=== PATIENT | female | born 1980 | race African-American/Black ===

== ENCOUNTER → 2020-08-26 12:21 | Outpatient (CLI) | payer MEDICARE, MEDICAID, SELFPAY ==
--- NOTE | ~2020-08-26 | MM_ITS ---
EXAMINATION: MM screening jes[facility] BI w [facility] HISTORY: Screening TECHNIQUE: Craniocaudal and mediolateral oblique 3-D tomosynthesis images were obtained and synthetic 2-D images were generated. CAD analysis was submitted and interpreted. COMPARISON: No prior mammogram is available for comparison at this institution. BREAST PARENCHYMAL COMPOSITION: The breasts are heterogeneously dense, which may obscure small masses . FINDINGS: There is no evidence of suspicious mass, calcification, or architectural distortion to sugg est malignancy in either breast. There has been no suspicious interval change. IMPRESSION: 1. No mammographic evidence of malignancy. 2. Recommend routine screening mammography in one year. BI-RADS Category 1: Negative sinus Reviewed, dictated and finalized at location A. EDURE RN
== END ==
PROVIDERS: PCP Internal Medicine; Visit Provider Obstetrics & Gynecology
DX: Z12.31 Encounter for screening mammogram for malignant neoplasm of breast (principal)
CPT/HCPCS: 77063; 77067

== ENCOUNTER 2020-11-06 11:29 | Emergency (ER) | payer MEDICARE, MEDICAID, SELFPAY ==
[2020-11-06 11:54] VITALS: BP 126/91; PULSE 95; RESP 16; TEMP 36.8; O2SAT 99
--- NOTE | 2020-11-06 12:20 | ED.GENADULT ---
HPI - General Adult General Chief complaint: Skin/Abscess/Foreign Body Stated complaint: bump on top of head Time Seen by Provider: 11/06/20 12:20 Source: patient and RN notes reviewed Mode of arrival: ambulatory Limitations: no limitations History of Present Illness HPI narrative: 40-year-old -[place] female presents with complaints of scalp with redness, tenderness, and swelling for the past 4 months. Arjun report receiving a perm in June 2020 which caused a sore to top of head, later became a red and irritated with improvement now has pus over the past 24 hours once she removed her hair weave. Tender to touch. No drainage. No fever or chills. No abdominal pain, nausea, and vomiting. Tolerating po intake well. LMP 3 weeks ago. Remains active. The patient reports she have not been diagnosed with COVID-19. The patient reports she is not waiting for the results of a COVID-19 lab test. The patient reports she do not have weakness or fatigue. The patient reports she do not have a new or worsening cough or shortness of breath. Denies chest pain. The patient reports she do not have any rhinorrhea, congestion, sore throat, loss of taste or smell, and diarrhea. Denies recent traveling. Denies concerns for COVID-19 or exposures been home with limited outdoor exposure except for essential household needs and return home. At this time, patient is not suspected of having COVID-19. Some parts of this dictation were generated by voice recognition software and may contain typographical and/or grammatical inaccuracies. Related Data Allergies Allergy/AdvReac Type Severity Reaction Status Date / Time NSAIDS (Non-Steroidal Allergy Mild Swelling Verified 11/10/20 10:34 Anti-Inflamma NAPROXEN SODIUM Allergy Mild SWELLING Uncoded 11/10/20 10:34 Review of Systems Review of Systems: Narrative: CONSTITUTIONAL: Denies fever, chills, sweats. EYES: Denies visual changes, redness, discharge. ENT: Denies rhinorrhea, congestion, sore throat, otalgia. CARDIOVASCULAR: Denies chest pain, palpitations, edema. RESPIRATORY: Denies dyspnea, wheezing, cough. GASTROINTESTINAL: Denies abdominal pain, nausea, vomiting, diarrhea. GENITOURINARY: Denies dysuria, hematuria, abnormal discharge. SKIN: Denies rash or itching. Scalp with redness, tenderness, swelling, and with pus noted. Denies drainage. MUSCULOSKELETAL: Denies acute back pain, joint pain, or myalgia. NEUROLOGIC: Denies numbness or focal weakness. PSYCHIATRIC: Denies anxiety or depression. All systems reviewed & are unremarkable except as noted in HPI and below. PMFSH Past Medical History Medical History Anemia, unspecified delivery delivered History of depression Seasonal allergic rhinitis Surgical History Surgical History H/O section X3 Family History Family History Mother Patient's mother is in good health Father Patient's father is in good health Sibling Patient's sister is in good health Patient's brother is in good health Other Asthma Social History Social History Smoking status: Never smoker Second hand tobacco smoke exposure: No Alcohol intake: former Substance use: never Substance use type: does not use Additional occupation/education comments: Disable Gender identity (if verbalized by the patient): Female Comments At time of signature, I have reviewed and agree with nursing past medical, surgical, social, and family history. Please see nursing chart for further information. There is no relevant family history pertinent to the presenting complaint. Exam Narrative: Exam Narrative: GENERAL: This is a well-nourished, well-developed patient, in no apparent distress. Talking in full sentences without d
== END 2020-11-06 12:49 | disposition home or self-care (01) ==
PROVIDERS: Emergency Provider Nurse Practitioner Family
DX: L02.811 Cutaneous abscess of head [any part, except face] (principal); F32.9 Major depressive disorder, single episode, unspecified
CPT/HCPCS: 10060; 99213; G0463

== ENCOUNTER → 2020-11-24 07:00 | Outpatient (CLI) | payer MEDICARE, MEDICAID, SELFPAY ==
[2020-11-24 18:21] LABS: SARS-CoV-2 RNA PCR Negative
== END ==
PROVIDERS: PCP Internal Medicine; Visit Provider Internal Medicine
DX: R68.89 Other general symptoms and signs (principal); Z20.822 Contact with and (suspected) exposure to COVID-19
CPT/HCPCS: C9803; U0003; U0005

== ENCOUNTER → 2021-03-04 01:09 | Outpatient (CLI) | payer MEDICARE, MEDICAID, SELFPAY ==
[2021-03-04 23:32] LABS: SARS-CoV-2 RNA PCR Negative
== END ==
PROVIDERS: Obstetrics & Gynecology; PCP Internal Medicine; Visit Provider Obstetrics & Gynecology Gynecology
DX: Z01.812 Encounter for preprocedural laboratory examination (principal); Z20.822 Contact with and (suspected) exposure to COVID-19
CPT/HCPCS: C9803; U0003; U0005

== ENCOUNTER 2021-03-07 02:51 | Day surgery (SDC) | payer MEDICARE, MEDICAID, SELFPAY ==
[2021-02-28 12:37] VITALS: BMI 35.0
--- NOTE | 2021-03-04 18:16 | WPDANESEPP ---
Anes - Eval Pre Procedure Procedure: Operation Date: 03/07/21 12:00 Proposed Procedures p Marsupialization Left Bartholin's Gland Cyst - Jorge Oquendo MD Date/Time: 03/04/21 18:16 Pre Op Diagnosis: bartholin gland cyst Patient Data Age: 40 Gender: F Height: 1.37 m Weight: 66 kg Allergies Allergy/AdvReac Type Severity Reaction Status Date / Time NSAIDS (Non-Steroidal Allergy Mild Swelling Verified 12/10/20 10:05 Anti-Inflamma NAPROXEN SODIUM Allergy Mild SWELLING Uncoded 12/10/20 10:05 Home Medications Medication Instructions Recorded Confirmed Type alprazolam 1 mg tablet 1 mg PO QHS #30 tablet 12/10/20 02/28/21 Rx cholecalciferol (vitamin D3) 50 50 mcg PO DAILY #30 cap 12/10/20 02/28/21 Rx mcg (2,000 unit) capsule sertraline 50 mg tablet 50 mg PO DAILY #30 tablet 12/21/20 02/28/21 Rx Patient hx anesthesia problems: none Family hx anesthesia problems: none PMFSH Past Medical History Medical History (Updated 03/04/21 @ 18:17 by Edward Brandt DO) Anemia, unspecified Anxiety and depression delivery delivered Seasonal allergic rhinitis Surgical History Surgical History H/O section X3 Family History Family History Mother Patient's mother is in good health Father Patient's father is in good health Sibling Patient's sister is in good health Patient's brother is in good health Other Asthma Social History Social History Smoking status: Never smoker Second hand tobacco smoke exposure: No Alcohol intake: never Substance use: never Substance use type: does not use Additional occupation/education comments: Disable Gender identity (if verbalized by the patient): Female Spiritual care concerns: No Exam Day of Procedure 03/04/21 18:16
[2021-03-07 10:11] VITALS: BP 125/74; PULSE 80; RESP 16; TEMP 36.4; O2SAT 100
[2021-03-07] MEDS: ACETAMINOPHEN 500 MG TABLET 1000 MG PO (10:25)
[2021-03-07] MEDS: LACTATED RINGERS 1,000 ML 30 ML IV CONT (10:36)
--- NOTE | 2021-03-07 10:58 | P.PNAN_ITS ---
Anes - Eval Final PreProcedure Day of Procedure 03/07/21 10:58 Patient weight: obese Heart: regular rate and rhythm Lungs: clear to auscultation Airway: Mallampati scale class II Neurological: alert and oriented Last oral intake: >/= 8 hours ASA classification: III Emergent: no Anesthetic plan: proceed Anesthesia type and monitoring: general GIVS and standard monitoring Informed Consent: The patient's anesthetic plan and its attendant risks and b enefits were discussed with the patient/family/POA. Questions were solicited and answers provided to the satisfaction of the patient/family/POA.
--- NOTE | 2021-03-07 11:37 | PM.HPGS ---
History of Present Illness History of Present Illness Consent: Risks, benefits, and alternatives have been discussed and questions answered. Patient agrees to proceed with procedure. 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 Review of Systems Review of Systems: All systems reviewed & are unremarkable except as noted in HPI and below PMFSH Past Medical History Medical History (Updated 03/07/21 @ 11:39 by Jorge Oquendo MD) Anemia, unspecified Anxiety and depression Bartholin cyst delivery delivered Seasonal allergic rhinitis Surgical History Surgical History H/O section X3 Family History Family History Mother Patient's mother is in good health Father Patient's father is in good health Sibling Patient's sister is in good health Patient's brother is in good health Other Asthma Social History Social History Smoking status: Never smoker Second hand tobacco smoke exposure: No Alcohol intake: never Substance use: never Substance use type: does not use Living arrangements: with family Additional occupation/education comments: Disable Gender identity (if verbalized by the patient): Female Sexual Orientation (if Verbalized by the Patient): Straight or Heterosexual Spiritual care concerns: No Meds Home Medications and Allergies Home Medications Medication Instructions Recorded Confirmed Type alprazolam 1 mg tablet 1 mg PO QHS #30 tablet 12/10/20 03/07/21 Rx cholecalciferol (vitamin D3) 50 50 mcg PO DAILY #30 cap 12/10/20 03/07/21 Rx mcg (2,000 unit) capsule sertraline 50 mg tablet 50 mg PO DAILY #30 tablet 12/21/20 03/07/21 Rx Allergies Allergy/AdvReac Type Severity Reaction Status Date / Time naproxen Allergy Severe Swelling Verified 03/07/21 10:23 NSAIDS (Non-Steroidal Allergy Severe Swelling Verified 03/07/21 10:23 Anti-Inflamma Vital Signs Vital Signs - 24 hr 03/07/21 10:11 Temperature 36.4 C L Pulse Rate 80 Respiratory Rate 16 Blood Pressure 125/74 Pulse Oximetry 100 Exam Const: General: cooperative Orientation/consciousness: patient oriented x3 Resp: Auscultation: clear to auscultation bilaterally Cardio: Rate: regular rate Rhythm: regular rhythm GI: Auscultation: normal bowel sounds : Bimanual exam- vagina & uterus: normal bimanual exam Bimanual Exam- Adnexa, other: normal adnexae Other: left large bartholins cyst Assessment and Plan Assessment and plan (1) Bartholin cyst: Code(s): N75.0 - Cyst of Bartholin's gland Status: Acute Additional Plan scheduled for a marsupalization of Left bartholin cyst. risk and benfits reviewed with patient.
--- NOTE | 2021-03-07 11:45 | WPDHPUPDATE1 ---
History and Physical Update Update Date/Time: 03/07/21 11:45 History and Physical has been reviewed, including an updated exam of the patient. There are NO changes in the patient's condition. Risks, benefits, and alternatives have been discussed and questions answered. Patient agrees to proceed with procedure.
[2021-03-07] MEDS: LIDO 1%/EPINEPHRINE 1:100,000 10 ML VIAL 50 ML INFILTRATE (12:30)
--- NOTE | 2021-03-07 12:34 | W.PM.PROC2 ---
Procedure Note - Detailed Date of Procedure 03/07/21 Pre-op Diagnosis bartholin gland cyst Post-op Diagnosis same Procedure Performed marsupalization of bartholin cyst left Surgeon Jorge Oquendo MD Anesthesia MAC and local Findings large left bartholins Description of Procedure Patient was taken to the operating room. She was prepped and draped in a normal sterile fashion. She is placed in a dorsal lithotomy position. The vagina was examined and noted a large left Bartholin's glands a stab incision was made into the left labia copious amounts of purulent drainage the stab incision was extended to about 1cm. The mucosa of the gland was grasped with Allis clamps and 3-0 Vicryl suture was used to sew the gland open and a running stitch to the vaginal tissue. This created a marsupialization of the gland opening. Hemostasis was assured with 5cc of lidocaine was injected into the site. Patient tolerated the procedure well was taken to recovery room in stable condition. Estimated Blood Loss 5 Drains No Packing No Pathology yes Complications None Condition stable Disposition observation
[2021-03-07 12:37] VITALS: BP 101/65; PULSE 78; RESP 14; O2SAT 95
[2021-03-07 13:09] VITALS: BP 101/71; PULSE 68; RESP 14
[2021-03-07 13:28] VITALS: BP 98/63; PULSE 69; RESP 16
== END 2021-03-07 13:30 | disposition home or self-care (01) ==
PROVIDERS: PCP Internal Medicine; Visit Provider Obstetrics & Gynecology
PROC: (CPT 56440; principal; 2021-03-07 12:00)
DX: N75.0 Cyst of Bartholin's gland (principal); F41.8 Other specified anxiety disorders
CPT/HCPCS: 56440; 87070; 87075; 87205; A9270; J2250; J2405; J2704; J3010; J7120

== ENCOUNTER 2021-03-22 14:02 | Outpatient (CLI) | payer MEDICARE, MEDICAID, SELFPAY ==
[2021-03-22 14:31] LABS: Hematocrit 33.9 % (37.0-47.0); Hemoglobin 11.9 g/dL (12.0-15.0)
[2021-03-22 15:03] LABS: Vitamin D 25 Hydroxy 40.1 ng/mL
== END 2021-03-22 14:03 | disposition home or self-care (01) ==
PROVIDERS: PCP Internal Medicine; Visit Provider Internal Medicine
DX: D64.9 Anemia, unspecified (principal); E55.9 Vitamin D deficiency, unspecified
CPT/HCPCS: 36415; 82306; 85014; 85018

== ENCOUNTER → 2021-04-07 02:51 | Outpatient (CLI) | payer MEDICARE, MEDICAID, SELFPAY ==
[2021-04-07 20:44] LABS: SARS-CoV-2 RNA PCR Negative
== END ==
PROVIDERS: PCP Internal Medicine; Visit Provider Internal Medicine
DX: R68.89 Other general symptoms and signs (principal); Z20.822 Contact with and (suspected) exposure to COVID-19
CPT/HCPCS: C9803; U0003; U0005

== ENCOUNTER 2021-06-26 19:19 | Emergency (ER) | payer MEDICARE, MEDICAID, SELFPAY ==
[2021-06-26 19:29] VITALS: BP 118/84; PULSE 105; RESP 16; TEMP 37.6; O2SAT 100
--- NOTE | 2021-06-26 19:30 | ED.ABDPAIN ---
HPI - Abdominal Pain General Chief Complaint: Abdominal Pain Stated Complaint: abd pain Time Seen by Provider: 06/26/21 19:36 Source: patient Mode of arrival: ambulatory Limitations: no limitations History of Present Illness HPI narrative: Arjun Mcadams with a 41 yo female with a PMH of depression and anxiety and she takes alprazolam at bedtime, who comes with suprapubic pain to the [facility] for evaluation. She states that she started having cramping on Sunday after she had eaten some [place] food on Sunday and then the cramping got much worse and she thought that may be she was going to have another early menstrual period she states that sometimes she has 2 menstrual cycles a month. She did not start spotting or bleeding and she has had intermittent cramping on and off since today she has been trying to eat light and she ate 2 eggs a little over an hour before coming here and after she ate the eggs she threw up. She denies fever she denies worsening pain she has no shortness of breath she has no history of abdominal pain Related Data Allergies Allergy/AdvReac Type Severity Reaction Status Date / Time naproxen Allergy Severe Swelling Verified 06/26/21 19:32 NSAIDS (Non-Steroidal Allergy Severe Swelling Verified 06/26/21 19:32 Anti-Inflamma Review of Systems Review of Systems: CONSTITUTIONAL: Denies fever, chills, sweats. EYES: Denies visual changes, redness, discharge. ENT: Denies rhinorrhea, congestion, sore throat, otalgia. CARDIOVASCULAR: Denies chest pain, palpitations, edema. RESPIRATORY: Denies dyspnea, wheezing, cough GASTROINTESTINAL: Has abdominal pain, nausea, vomiting, diarrhea. GENITOURINARY: Denies dysuria, hematuria, abnormal discharge SKIN: Denies rash or itching. NEUROLOGIC: Denies numbness, or focal weakness. PSYCHIATRIC: Denies anxiety or depression. [facility] Past Medical History Medical History Anemia, unspecified Anxiety and depression Bartholin cyst delivery delivered Seasonal allergic rhinitis Surgical History Surgical History H/O section X3 Family History Family History Mother Patient's mother is in good health Father Patient's father is in good health Sibling Patient's sister is in good health Patient's brother is in good health Other Asthma Social History Social History Smoking status: Never smoker Second hand tobacco smoke exposure: No Alcohol intake: never Substance use: never Substance use type: does not use Additional occupation/education comments: Disable Gender identity (if verbalized by the patient): Female Sexual Orientation (if Verbalized by the Patient): Straight or Heterosexual Spiritual care concerns: No Comments At time of signature, I agree with nursing past medical, surgical, social and family history. There is no relevant family history pertinent to the presenting complaint. Exam Narrative: My GENERAL: This is a well-nourished, well-developed patient, in mild distress. HEAD: normocephalic, atraumatic. EYES: Sclera clear/white. Vision is grossly intact. EARS: External ears normal,. Hearing grossly intact. NOSE: External nose normal without nasal discharge, nares without redness, no rhinorrhea. THROAT: Mucous membranes moist, NECK: Neck supple, non-tender CARDIOVASCULAR: Tachycardic rate and rhythm without murmurs, gallops, or rubs. RESPIRATORY: Clear to auscultation. Breath sounds equal bilaterally. No wheezes, rales, or rhonchi. GASTROINTESTINAL: Abdomen soft, mild suprapubic tenderness SKIN: warm, intact with no suspicious lesions or rash, good texture and turgor. NEURO: awake, alert, and oriented to person, place and time. There were no obvious focal neurologic abnormalitie
== END 2021-06-26 19:57 | disposition home or self-care (01) ==
PROVIDERS: Emergency Provider Nurse Practitioner; PCP Internal Medicine
DX: R10.30 Lower abdominal pain, unspecified (principal); F41.9 Anxiety disorder, unspecified; F32.A Depression, unspecified
CPT/HCPCS: 81003; 99212; G0463

== ENCOUNTER 2021-06-26 21:09 | Emergency (ER) | payer MEDICARE, MEDICAID, SELFPAY ==
--- NOTE | ~2021-06-26 | CT_ITS ---
EXAMINATION: CT abdomen pelvis w con DATE: 06/27/2021 00:22 INDICATION: Left lower quadrant abdominal pain TECHNIQUE: Computed tomography (CT) of the abdomen and pelvis was performed with 100 cc Omnipaque 350 intravenous contrast. The dose-length product was 271.94 mGy-cm. Automated exposure control and iter ative reconstruction technique were employed. COMPARISON: CT dated 12/07/2003. FINDINGS: Lung bases unremarkable. Heart size normal. No significant pleural or pericardial effusion. Fatty infiltration of the liver. Gallbladder is present. The spleen, pancreas, adrenal glands and kid neys are unremarkable. There is a peridiverticular abscess of the sigmoid colon measuring 11 mm. No f ree air. There is diverticulitis of the sigmoid colon with mild surrounding phlegmonous change. Nonob structive bowel gas pattern. There is an involuting 1.9 cm corpus luteal cyst of the left ovary. Trac e free fluid in the pelvis. IMPRESSION: 1. Acute sigmoid diverticulitis with small 11 mm peridiverticular abscess. Reviewed, dictated and finalized at location B. [employer] LEVEL FIVE
[2021-06-26 21:13] VITALS: BP 143/93; PULSE 91; RESP 16; TEMP 36.4; O2SAT 100
[2021-06-26 23:26] LABS: Basophils Percent Auto 0.2 % (0.2-1.2); Eosinophils Percent Auto 0.2 % (0-4.4); Hematocrit 35.4 % (37.0-47.0); Hemoglobin 12.7 g/dL (12.0-15.0); Immature Granulocyte Absolute 0.02 K/mm3 (0.00-0.031); Immature Granulocyte Percent A 0.2 % (0-0.5); Lymphocytes Absolute Auto 2.56 K/mm3 (0.9-3.2); Lymphocytes Percent Auto 26.1 % (18.3-44.2); Mean Corpuscular HGB Conc 35.9 g/dl (32-36); Mean Corpuscular Hemoglobin 31.4 pg (26-34); Mean Corpuscular Volume 87.4 fl (80-100); Mean Platelet Volume 10.8 fl (7.4-10.4); Monocytes Absolute Auto 0.8 K/mm3 (0.1-0.6); Monocytes Percent Auto 7.6 % (2.6-8.5); Neutrophils Absolute Auto 6.5 K/mm3 (1.3-6.7); Neutrophils Percent Auto 65.7 % (45.5-73.1); Platelet Count Result 288 k/mm3 (150-375); Red Blood Count 4.05 M/mm3 (4.2-5.4); White Blood Count 9.8 K/mm3 (4.5-10.0)
--- NOTE | 2021-06-26 23:34 | ED.GENADULT ---
HPI - General Adult General Chief complaint: Urogenital-Female Stated complaint: abd pain Time Seen by Provider: 06/26/21 23:10 History of Present Illness HPI narrative: Patient is a 41-year-old female presents the emergency department with chief complaint of left lower quadrant pain. The patient was seen in urgent care earlier today and had a urinalysis the patient reports that she is continued to have pain of the left lower quadrant reports not improved by anything or is worsened by. Patient denies fever denies chills denies vomiting or diarrhea. Patient reports it feels similar to whenever she is about started. She has not started her period yet. Related Data Allergies Allergy/AdvReac Type Severity Reaction Status Date / Time naproxen Allergy Severe Swelling Verified 06/26/21 19:32 NSAIDS (Non-Steroidal Allergy Severe Swelling Verified 06/26/21 19:32 Anti-Inflamma Review of Systems Review of Systems: A 10 system review of systems was completed on the patient and is negative except for what is stated in the HPI. Nursing and ancillary documentation was reviewed. PMFSH Past Medical History Medical History Anemia, unspecified Anxiety and depression Bartholin cyst delivery delivered Seasonal allergic rhinitis Surgical History Surgical History H/O section X3 Family History Family History Mother Patient's mother is in good health Father Patient's father is in good health Sibling Patient's sister is in good health Patient's brother is in good health Other Asthma Social History Social History Smoking status: Never smoker Second hand tobacco smoke exposure: No Alcohol intake: never Substance use: never Substance use type: does not use Additional occupation/education comments: Disable Gender identity (if verbalized by the patient): Female Sexual Orientation (if Verbalized by the Patient): Straight or Heterosexual Spiritual care concerns: No Exam Narrative: GENERAL: Well-appearing, well-nourished, and in no acute distress. HEAD: Normocephalic, atraumatic. EYES: PERRLA and EOMI. ENT: Nares clear, no rhinorrhea or epistaxis. Mucous membranes moist. NECK: Supple. CHEST: Clear to auscultation. No respiratory distress. HEART: Regular rate and rhythm. No murmur heard. Normal peripheral pulses. ABDOMEN: Soft, tenderness to palpation in the left lower quadrant, nondistended, normal active bowel sounds. EXTREMITIES: Normal range of motion. No edema. SKIN: Warm, dry, no rash. NEURO: No focal deficits. Alert and oriented x3. PSYCH: Normal mood and affect. Course Vital Signs Vital signs: Vital Signs Temperature 36.4 C L 06/26/21 21:13 Pulse Rate 91 06/26/21 21:13 Respiratory Rate 16 06/26/21 21:13 Blood Pressure 143/93 H 06/26/21 21:13 Pulse Oximetry 100 06/26/21 21:13 Temperature 36.4 C L 06/26/21 21:13 Pulse Rate 76 06/27/21 01:05 Respiratory Rate 16 06/26/21 21:13 Blood Pressure 117/79 06/27/21 01:05 Pulse Oximetry 99 06/27/21 01:05 Medical Decision Making Vital Signs Vital Signs: Vital Signs Temperature 36.4 C L 06/26/21 21:13 Pulse Rate 91 06/26/21 21:13 Respiratory Rate 16 06/26/21 21:13 Blood Pressure 143/93 H 06/26/21 21:13 Pulse Oximetry 100 06/26/21 21:13 Temperature 36.4 C L 06/26/21 21:13 Pulse Rate 76 06/27/21 01:05 Respiratory Rate 16 06/26/21 21:13 Blood Pressure 117/79 06/27/21 01:05 Pulse Oximetry 99 06/27/21 01:05 Lab Data Result diagrams: 06/26/21 23:19 06/26/21 23:19 Labs: Lab Results 06/26/21 06/26/21 06/26/21 Range/Units 23:19 23:19 23:19 WBC 9.8 (4.5-10.0) K/mm3 RBC 4
[2021-06-26 23:50] LABS: Add Urine Microscopic? YES; Appearance Urine Clear (Clear); Bilirubin Urine Negative (Negative); Blood Urine 1+ (Negative); Color Urine Yellow (Yellow); Glucose Urine UA Negative (Negative); Ketones Urine Trace mg/dL (Negative); Leukocyte Esterase Ur Negative LEU/UL (Negative); Mucus Urine Rare /lpf; Nitrate Urine Negative (Negative); Protein Urine Negative (Negative); RBC Urine 0-2 /hpf (0-2); Specific Grav Ur 1.012 (1.001-1.035); Squamous Epithelial Cell Urine Moderate /hpf (Few); Urobilinogen Urine Negative mg/dL (<2.0); WBC Urine 0-3 /hpf
[2021-06-26 23:56] LABS: Alanine Aminotransferase 14 U/L (4-35); Albumin Level 4.4 g/dL (3.5-5.1); Alkaline Phosphatase 104 U/L (38-126); Anion Gap 8 mmol/L (8-16); Aspartate Amino Transferase 21 U/L (14-36); Bilirubin,Total 0.6 mg/dL (0.2-1.3); Blood Urea Nitrogen 9 mg/dL (7-17); Carbon Dioxide 28 mmol/L (22-30); Chloride 105 mmol/L (98-107); Estimated CRCL calculation 64 ml/min; Estimated Glomerular Filt Rate > 60; Glucose 115 mg/dL (65-110); Lipase 57 U/L (23-300); Potassium 3.7 mmol/L (3.4-5.0); Sodium 141 mmol/L (137-145)
[2021-06-27 00:27] VITALS: BP 116/74; PULSE 86; O2SAT 99
[2021-06-27 01:05] VITALS: BP 117/79; PULSE 76; O2SAT 99
[2021-06-27 01:15] VITALS: BP 124/79; O2SAT 99
[2021-06-27 01:31] VITALS: BP 116/80; O2SAT 99
[2021-06-27 01:46] VITALS: BP 112/71; O2SAT 99
[2021-06-27] MEDS: AMOXICILLIN/CLAVULANATE K 875-125 MG TAB 1 TABLET PO (01:57)
== END 2021-06-27 02:05 | disposition home or self-care (01) ==
PROVIDERS: Emergency Provider Emergency Medicine; PCP Internal Medicine
DX: K57.20 Diverticulitis of large intestine with perforation and abscess without bleeding (principal); N83.202 Unspecified ovarian cyst, left side; D64.9 Anemia, unspecified
CPT/HCPCS: 36415; 74177; 80053; 81001; 81003; 81025; 83690; 85025; 99284; A9270; Q9967

== ENCOUNTER → 2021-08-10 02:18 | Outpatient (CLI) | payer MEDICARE, MEDICAID, SELFPAY ==
[2021-08-10 21:19] LABS: SARS-CoV-2 RNA PCR Negative
== END ==
PROVIDERS: PCP Internal Medicine; Visit Provider Internal Medicine
DX: R68.89 Other general symptoms and signs (principal); Z20.822 Contact with and (suspected) exposure to COVID-19
CPT/HCPCS: C9803; U0003; U0005

== ENCOUNTER → 2021-12-06 13:20 | Outpatient (CLI) | payer MEDICARE, MEDICAID, SELFPAY ==
--- NOTE | ~2021-12-06 | MM_ITS ---
EXAMINATION: MM screening jesus BI w [facility] HISTORY: Screening TECHNIQUE: Craniocaudal and mediolateral oblique 3-D tomosynthesis images were obtained and synthetic 2-D images were generated. CAD analysis was submitted and interpreted. COMPARISON: 08/26/2020 BREAST PARENCHYMAL COMPOSITION: The breasts are extremely dense, which lowers the sensitivity of mamm ography FINDINGS: There is no evidence of suspicious mass, calcification, or architectural distortion to sugg est malignancy in either breast. There has been no suspicious interval change. IMPRESSION: 1. No mammographic evidence of malignancy. 2. Recommend routine screening mammography in one year. BI-RADS Category 1: Negative Reviewed, dictated and finalized at location A.
== END ==
PROVIDERS: PCP Internal Medicine; Visit Provider Obstetrics & Gynecology Gynecology
DX: Z12.31 Encounter for screening mammogram for malignant neoplasm of breast (principal)
CPT/HCPCS: 77063; 77067

== ENCOUNTER 2022-03-01 08:08 | Emergency (ER) | payer MEDICARE, MEDICAID, SELFPAY ==
[2022-03-01 08:16] VITALS: BP 120/77; PULSE 115; RESP 16; TEMP 37.1; O2SAT 99
--- NOTE | 2022-03-01 08:27 | ED.URI ---
HPI - URI/Sore Throat General Stated Complaint: sore throat Time Seen by Provider: 03/01/22 08:27 Source: patient Mode of arrival: ambulatory Limitations: no limitations History of Present Illness HPI Narrative: 41 yo F presents with c/o mild sore throat starting yesterday. Denies congestion, drainage, cough. NO fever/chills or fatigue. Also reports itching to labia of vaginal. Reports that she has very sensitive skin and does not shave or use soaps to vagina. No concern for STI. No urinary symptoms. All systems reviewed and negative except as noted above. Related Data Allergies Allergy/AdvReac Type Severity Reaction Status Date / Time naproxen Allergy Severe Swelling Verified 03/01/22 08:10 NSAIDS (Non-Steroidal Allergy Severe Swelling Verified 03/01/22 08:10 Anti-Inflamma Review of Systems Review of Systems: CONSTITUTIONAL: Denies fever, chills, or sweats. EYES: Denies visual changes, redness, or discharge. ENT: Denies rhinorrhea, congestion. Reports sore throat. CARDIOVASCULAR: Denies chest pain, palpitations, or edema. RESPIRATORY: Denies cough or dyspnea. GASTROINTESTINAL: Denies abdominal pain, nausea, vomiting, or diarrhea. GENITOURINARY: Denies dysuria or hematuria. Reports itching to labia. SKIN: Denies rash or itching. MUSCULOSKELETAL: Denies back pain, joint pain, or myalgia. NEUROLOGIC: Denies headache, numbness, or weakness. PSYCHIATRIC: Denies anxiety or depression. All other systems reviewed are negative, except as documented in HPI. [facility] Past Medical History Medical History Anemia, unspecified Anxiety and depression Bartholin cyst delivery delivered Seasonal allergic rhinitis Surgical History Surgical History H/O section X3 Family History Family History Mother Patient's mother is in good health Father Patient's father is in good health Sibling Patient's sister is in good health Patient's brother is in good health Other Asthma Social History Social History (Reviewed 10/04/21 @ 13:28 by NORM Vazquez Smoking status: Never smoker Second hand tobacco smoke exposure: No Alcohol intake: never Substance use: never Substance use type: does not use Additional occupation/education comments: Disable Gender identity (if verbalized by the patient): Female Sexual Orientation (if Verbalized by the Patient): Straight or Heterosexual Spiritual care concerns: No Comments At time of signature, agree with nursing past medical, surgical, social and family history. There is no relevant family history pertinent to the presenting complaint. Exam Narrative: GENERAL: This is a well-nourished, well-developed patient, in no apparent distress. HEAD: normocephalic, atraumatic. EYES: PERRL. Sclera clear/white. Vision is grossly intact. EARS: External ears normal, auditory canals clear and without drainage, TMs normal without perforation. Hearing grossly intact. NOSE: External nose normal with no obvious nasal discharge, nares without redness, no rhinorrhea. THROAT: Mucous membranes moist, posterior pharynx clear. No exudates or swelling. NECK: Neck supple, non-tender without lymphadenopathy, masses or thyromegaly. CARDIOVASCULAR: Regular rate and rhythm without murmurs, gallops, or rubs. RESPIRATORY: Clear to auscultation. Breath sounds equal bilaterally. No wheezes, rales, or rhonchi. Urogenital: Normal external vagina. no rash, follicutlitis, erythema or swelling. devon Naidu RN SKIN: warm, Dry, intact with no suspicious lesions or rash, good texture and turgor. NEURO: awake, alert, and oriented to person, place and time. There were no obvious focal neurologic abnormalities. EXTREMITIES: No joint tenderness, effusion, or edema noted. Course Course Level of Care: Mateo Medrano
== END 2022-03-01 08:38 | disposition home or self-care (01) ==
PROVIDERS: Emergency Provider Nurse Practitioner Family; PCP Internal Medicine
DX: J02.9 Acute pharyngitis, unspecified (principal); N89.8 Other specified noninflammatory disorders of vagina; D64.9 Anemia, unspecified
CPT/HCPCS: 87081; 87880; 99213; G0463

== ENCOUNTER 2022-04-19 08:54 | Outpatient (CLI) | payer MEDICARE, MEDICAID, SELFPAY ==
[2022-04-19 09:20] LABS: Alanine Aminotransferase 14 U/L (6-35); Albumin Level 4.3 g/dL (3.5-5.1); Alkaline Phosphatase 67 U/L (38-126); Anion Gap 8 mmol/L (8-16); Aspartate Amino Transferase 20 U/L (14-36); Bilirubin,Total 0.8 mg/dL (0.2-1.3); Blood Urea Nitrogen 10 mg/dL (7-17); Calcium 9.2 mg/dL (8.4-10.2); Carbon Dioxide 24 mmol/L (22-30); Chloride 108 mmol/L (98-107); Cholesterol 147 mg/dL (0-200); Estimated Glomerular Filt Rate > 60; Glucose 95 mg/dL (65-110); HDL Direct 56 mg/dL; Potassium 3.9 mmol/L (3.4-5.0); Sodium 140 mmol/L (137-145); Triglycerides 134 mg/dL (<150)
[2022-04-19 09:30] LABS: LDL Cholesterol Direct 62 mg/dL
[2022-04-19 09:49] LABS: Thyroid Stimulating Hormone 0.639 uIU/mL (0.465-4.680)
[2022-04-19 10:05] LABS: Vitamin D 25 Hydroxy 30.6 ng/mL
== END 2022-04-19 08:55 | disposition home or self-care (01) ==
PROVIDERS: PCP Internal Medicine; Visit Provider Nurse Practitioner
DX: E55.9 Vitamin D deficiency, unspecified (principal); F32.A Depression, unspecified; R73.01 Impaired fasting glucose; Z13.220 Encounter for screening for lipoid disorders; Z13.6 Encounter for screening for cardiovascular disorders
CPT/HCPCS: 36415; 80053; 80061; 82306; 84443

== ENCOUNTER 2022-06-23 09:40 | Emergency (ER) | payer MEDICARE, MEDICAID, SELFPAY ==
[2022-06-23 09:48] VITALS: BP 122/75; PULSE 91; RESP 16; TEMP 36.9; O2SAT 100
--- NOTE | 2022-06-23 10:31 | ED.URI ---
HPI - URI/Sore Throat General Chief Complaint: Upper Respiratory Infection Stated Complaint: sore throat Time Seen by Provider: 06/23/22 10:31 Source: patient, RN notes reviewed and old records reviewed Mode of arrival: ambulatory Limitations: no limitations History of Present Illness HPI Narrative: 42-year-old female presents to the [facility] with complaints of sore throat, runny nose for 3 days Patient also reports that she woke up with crusted eyes morning, redness and inflammation. Wears glasses but not contact lenses. Has been using Chloraseptic for the sore throat. Denies any other treatment. Related Data Allergies Allergy/AdvReac Type Severity Reaction Status Date / Time naproxen Allergy Severe Swelling Verified 06/23/22 10:01 NSAIDS (Non-Steroidal Allergy Severe Swelling Verified 06/23/22 10:01 Anti-Inflamma Review of Systems Review of Systems: All systems reviewed & are unremarkable except as noted in HPI and below Constitutional: Constitutional: Reports no additional constitutional complaints, Denies chills and Denies fever(s) Eyes: Eyes: Reports as per HPI ENT: Reports as per HPI and Reports sore throat Cardiovascular: Cardiovascular: Reports no additional cardiovascular complaints Respiratory: Respiratory: Reports no additional respiratory complaints Gastrointestinal: Gastrointestinal: Reports no additional gastrointestinal complaints Musculoskeletal: Musculoskeletal: Reports no additional musculoskeletal complaints Integumentary/Breasts: Skin/Breast: Reports system reviewed and no additional complaints, except as docu Neurologic: Reports system reviewed and no additional complaints, except as documented Psychiatric: Psychiatric: Reports no additional psychiatric complaints Allergic/Immunologic: Allergic/Immunologic: Reports no additional allergic/immunologic complaints [facility] Past Medical History Medical History Anemia, unspecified Anxiety and depression Bartholin cyst delivery delivered Seasonal allergic rhinitis Surgical History Surgical History H/O section X3 Family History Family History Mother Patient's mother is in good health Father Patient's father is in good health Sibling Patient's sister is in good health Patient's brother is in good health Other Asthma Social History Social History (Reviewed 06/23/22 @ 10:37 by ARPITA Ayala Smoking status: Never smoker Second hand tobacco smoke exposure: No Alcohol intake: never Substance use: never Substance use type: does not use Additional occupation/education comments: Disable Gender identity (if verbalized by the patient): Female Sexual Orientation (if Verbalized by the Patient): Straight or Heterosexual Spiritual care concerns: No Comments At the time of my signature, I reviewed and agree with the nursing past medical, surgical, social, and family history. There is no relevant family history pertinent to the patient complaint. Exam Const: General: healthy appearing, comfortable, no acute distress, well developed, alert and well nourished Nutritional Appearance: well nourished Orientation/consciousness: patient oriented x3 Limitations: no limitations HENMT: Head: normal to inspection Ears: external ears normal, TM's normal bilaterally and EAC's normal Face/Nose/Sinus: Normal external nose present and Normal nares present Face and sinus: normal facial exam Mouth: Yes Normal oral and palatal mucosa present, Yes lip normal and Yes tongue normal Throat: posterior oropharynx normal, tonsils normal, uvula midline, postnasal drainage and no uvular edema Eyes: General: appearance normal, both eyes and all related structures Conjunctivae: conjunctivae normal Pupils: Equal, round and reactive pupils present Neck:
== END 2022-06-23 10:44 | disposition home or self-care (01) ==
PROVIDERS: Emergency Provider Nurse Practitioner; PCP Internal Medicine
DX: R09.82 Postnasal drip (principal); H57.13 Ocular pain, bilateral; J06.9 Acute upper respiratory infection, unspecified
CPT/HCPCS: 99213; G0463

== ENCOUNTER 2022-07-10 11:20 | Emergency (ER) | payer MEDICARE, MEDICAID, SELFPAY ==
[2022-07-10 11:27] VITALS: BP 103/68; PULSE 101; RESP 18; TEMP 36.6; O2SAT 99
--- NOTE | 2022-07-10 11:27 | ED.GENADULT ---
HPI - General Adult General Chief complaint: Upper Respiratory Infection Stated complaint: Fever Time Seen by Provider: 07/10/22 11:27 Source: patient, RN notes reviewed and old records reviewed Mode of arrival: ambulatory Limitations: no limitations History of Present Illness HPI narrative: 42-year-old female presents to the [facility] with a fever as high as 103 since Sunday, 2 days. Has not taken anything for symptoms. Not concerned for COVID, states that she took a test at home which was negative. Reports 2 of her children are home with strep and influenza A. Onset (ago): day(s) (2) Related Data Home Medications Medication Instructions Recorded Confirmed No Home Medications 07/10/22 07/10/22 Allergies Allergy/AdvReac Type Severity Reaction Status Date / Time naproxen Allergy Severe Swelling Verified 07/10/22 11:36 NSAIDS (Non-Steroidal Allergy Severe Swelling Verified 07/10/22 11:36 Anti-Inflamma Review of Systems Review of Systems: All systems reviewed & are unremarkable except as noted in HPI and below Constitutional: Constitutional: Reports as per HPI, Reports body ache(s), Reports chills, Reports fatigue and Reports fever(s) Eyes: Eyes: Reports no additional eye complaints ENT: Reports as per HPI Cardiovascular: Cardiovascular: Reports no additional cardiovascular complaints, Denies chest pain and Denies dyspnea Respiratory: Respiratory: Reports no additional respiratory complaints, Denies chest congestion, Denies cough and Denies dyspnea Gastrointestinal: Gastrointestinal: Reports no additional gastrointestinal complaints, Denies abdominal pain, Denies nausea and Denies vomiting Musculoskeletal: Musculoskeletal: Reports no additional musculoskeletal complaints Integumentary/Breasts: Skin/Breast: Reports system reviewed and no additional complaints, except as docu Neurologic: Reports system reviewed and no additional complaints, except as documented Psychiatric: Psychiatric: Reports no additional psychiatric complaints Allergic/Immunologic: Allergic/Immunologic: Reports no additional allergic/immunologic complaints [facility] Past Medical History Medical History Anemia, unspecified Anxiety and depression Bartholin cyst delivery delivered Seasonal allergic rhinitis Surgical History Surgical History H/O section X3 Family History Family History Mother Patient's mother is in good health Father Patient's father is in good health Sibling Patient's sister is in good health Patient's brother is in good health Other Asthma Social History Social History Smoking status: Never smoker Second hand tobacco smoke exposure: No Alcohol intake: never Substance use: never Substance use type: does not use Additional occupation/education comments: Disable Gender identity (if verbalized by the patient): Female Sexual Orientation (if Verbalized by the Patient): Straight or Heterosexual Spiritual care concerns: No Comments At the time of my signature, I reviewed and agree with the nursing past medical, surgical, social, and family history. There is no relevant family history pertinent to the patient complaint. Exam Const: General: cooperative, healthy appearing, comfortable, no acute distress, well developed, alert and well nourished Nutritional Appearance: well nourished Orientation/consciousness: patient oriented x3 Limitations: no limitations HENMT: Head: normal to inspection Ears: hearing grossly normal bilaterally and external ears normal Face/Nose/Sinus: Normal external nose present, Normal nares present, Normal nasal mucous membranes and turbinates present and normal facial exam Face and sinus: normal facial exam Mouth: Yes Normal
== END 2022-07-10 11:49 | disposition home or self-care (01) ==
PROVIDERS: Emergency Provider Nurse Practitioner; PCP Internal Medicine
DX: R50.9 Fever, unspecified (principal); R53.83 Other fatigue
CPT/HCPCS: 87804; 99213; G0463

== ENCOUNTER 2022-11-11 16:42 | Emergency (ER) | payer MEDICARE, MEDICAID, SELFPAY ==
[2022-11-11 16:51] VITALS: BP 118/72; PULSE 86; RESP 14; TEMP 36.8; O2SAT 100
[2022-11-11 17:00] VITALS: BP 118/72; PULSE 86; RESP 14; TEMP 36.8; O2SAT 100
--- NOTE | 2022-11-11 17:15 | ED.SKABFB ---
HPI - Skin/Abscess/Foreign Bdy General Chief complaint: Skin/Abscess/Foreign Body Stated complaint: Bump on Left Hand Finger Source: patient and RN notes reviewed History of Present Illness HPI narrative: 42 yo F presents to urgent care with complaints of a bump on her right index finger. Pt states she first noticed it 1 week ago. pt denies any pain, numbness, tingling, or decreased ROM. Pt denies any itching or rash. Related Data Home Medications Medication Instructions Recorded Confirmed No Home Medications 07/10/22 07/10/22 Allergies Allergy/AdvReac Type Severity Reaction Status Date / Time naproxen Allergy Severe Swelling Verified 11/11/22 17:00 NSAIDS (Non-Steroidal Allergy Severe Swelling Verified 11/11/22 17:00 Anti-Inflamma Review of Systems Review of Systems: CONSTITUTIONAL: Denies fever, chills, or sweats. EYES: Denies visual changes, redness, or discharge. ENT: Denies otalgia and sore throat CARDIOVASCULAR: Denies chest pain, palpitations, or edema. RESPIRATORY: Denies cough or dyspnea. GASTROINTESTINAL: Denies abdominal pain, nausea, vomiting, or diarrhea. GENITOURINARY: Denies dysuria or hematuria. SKIN: Denies rash or itching. MUSCULOSKELETAL: knot on left index finger. NEUROLOGIC: Denies headache, numbness, or weakness. Pertinent positives per HPI. [facility] Past Medical History Medical History Anemia, unspecified Anxiety and depression Bartholin cyst delivery delivered Seasonal allergic rhinitis Surgical History Surgical History H/O section X3 Family History Family History Mother Patient's mother is in good health Father Patient's father is in good health Sibling Patient's sister is in good health Patient's brother is in good health Other Asthma Social History Social History Smoking status: Never smoker Second hand tobacco smoke exposure: No Alcohol intake: never Substance use: never Substance use type: does not use Living arrangements: with family Occupation/Education: other Additional occupation/education comments: Disable Gender identity (if verbalized by the patient): Female Sexual Orientation (if Verbalized by the Patient): Straight or Heterosexual Spiritual care concerns: No Comments At the time of my signature, I reviewed and agree with the nursing past medical, surgical, social, and family history. There is no relevant family history pertinent to the patient complaint. Exam Narrative: GENERAL: This is a well-nourished, well-developed patient, in no apparent distress. HEAD: normocephalic, atraumatic. EYES: Sclera clear/white. Vision is grossly intact. EARS: External ears normal, auditory canals clear and without drainage. Hearing grossly intact. NOSE: External nose normal with no obvious nasal discharge, nares without redness, no rhinorrhea. NECK: Neck supple, non-tender without lymphadenopathy, masses or thyromegaly. CARDIOVASCULAR: Regular rate RESPIRATORY: No respiratory distress SKIN: warm, intact with no suspicious lesions or rash, good texture and turgor. NEURO: awake, alert, and oriented to person, place and time. There were no obvious focal neurologic abnormalities. EXTREMITIES: 0.5 cm nodule noted to left index finger, radial side, distal phalanx. Non-tender, mobile. BACK: Nontender without deformity or crepitance. No flank tenderness. Course Course Level of Care: Express Care Visit Vital Signs Vital signs: Vital Signs Temperature 98.2 F 11/11/22 16:51 Pulse Rate 86 11/11/22 16:51 Respiratory Rate 14 11/11/22 16:51 Blood Pressure 118/72 11/11/22 16:51 Pulse Oximetry 100 11/11/22 16:51 Oxygen Delivery Room Air 11/11/22 16:51 Temperature 98.2 F 11/11/22 1
== END 2022-11-11 17:26 | disposition home or self-care (01) ==
PROVIDERS: Emergency Provider Nurse Practitioner Family; PCP Internal Medicine
DX: L72.9 Follicular cyst of the skin and subcutaneous tissue, unspecified (principal)
CPT/HCPCS: 99211; G0463

== ENCOUNTER → 2023-02-14 10:38 | Outpatient (CLI) | payer MEDICARE, MEDICAID, SELFPAY ==
--- NOTE | ~2023-02-14 | MM_ITS ---
EXAMINATION: MM screening jesus BI w south HISTORY: Screening TECHNIQUE: Craniocaudal and mediolateral oblique 3-D tomosynthesis images were obtained and synthetic 2-D images were generated. CAD analysis was submitted and interpreted. COMPARISON: Comparison to multiple prior studies sequentially, with oldest reviewed study dated 08/19. BREAST PARENCHYMAL COMPOSITION: The breasts are extremely dense, which lowers the sensitivity of mamm ography FINDINGS: There are new focal asymmetries in the lower central aspect of the left breast, best seen o n MLO view. The right breast is stable without evidence for malignancy. IMPRESSION: 1. New focal left breast asymmetries. 2. Additional mammographic views and possible breast ultrasound are recommended. BI-RADS Category 0: Incomplete: Needs additional imaging evaluation. Reviewed, dictated and finalized at location A. IMPRESSION: 1. New focal left breast asymmetries. 2. Additional mammographic views and possible breast ultrasound are recommended . BI-RADS Category 0: Incomplete: Needs additional imaging evaluation.
== END ==
PROVIDERS: PCP Obstetrics & Gynecology Gynecology; Visit Provider Obstetrics & Gynecology Gynecology
DX: Z12.31 Encounter for screening mammogram for malignant neoplasm of breast (principal); R92.8 Other abnormal and inconclusive findings on diagnostic imaging of breast
CPT/HCPCS: 77063; 77067

== ENCOUNTER → 2023-03-15 09:04 | Outpatient (CLI) | payer MEDICARE, MEDICAID, SELFPAY ==
--- NOTE | ~2023-03-15 | MMUS_ITS ---
EXAMINATION: MM diagnostic jesus LT w south, US breast LT limited HISTORY: Follow-up left breast asymmetries TECHNIQUE: Additional 3-D tomosynthesis images of the left breast were performed and synthetic 2-D im ages were generated. CAD analysis was submitted and interpreted. High resolution Limited left breast ultrasound was performed. COMPARISON: 02/14/2023 BREAST PARENCHYMAL COMPOSITION: The breasts are extremely dense, which lowers the sensitivity of mamm ography FINDINGS: MAMMOGRAPHIC FINDINGS: There are persistent asymmetries in the subareolar location of the left breast, although no discrete mass identified. No suspicious calcifications or architectural distortion. ULTRASOUND: Limited left breast ultrasound: There are multiple simple and complicated cysts of the left breast. N o suspicious masses to suggest malignancy. IMPRESSION: 1. No evidence for malignancy in the left breast. Benign findings. 2. Routine yearly screening mammogram and regular clinical breast examination are recommended. BI-RADS Category 2: Benign finding(s). Reviewed, dictated and finalized at location A. IMPRESSION: 1. No evidence for malignancy in the left breast. Benign findings. 2. Routine yearly screening mammogram and regular clinical breast examination a re recommended. BI-RADS Category 2: Benign finding(s).
== END ==
PROVIDERS: PCP Obstetrics & Gynecology Gynecology; Visit Provider Obstetrics & Gynecology Gynecology
DX: R92.8 Other abnormal and inconclusive findings on diagnostic imaging of breast (principal)
CPT/HCPCS: 76642; 77061; 77065; G0279

== ENCOUNTER 2023-07-05 09:24 | Emergency (ER) | payer MEDICARE, MEDICAID, SELFPAY ==
[2023-07-05 09:37] VITALS: BP 127/69; PULSE 78; RESP 16; TEMP 36.9; O2SAT 99
--- NOTE | 2023-07-05 09:42 | ED.EYEPROB ---
HPI - Eye Problem General Chief complaint: Eye Problems Stated complaint: both eyes discharge,sore throat Source: patient, RN notes reviewed and old records reviewed Mode of arrival: ambulatory Limitations: no limitations History of Present Illness HPI Narrative: 43-year-old female presents to [facility] with complaints of sore throat, nasal drainage, and by lateral eye redness with drainage and irritation this started 1-2 days ago. Patient denies cough, chest pain, dizziness, fever, nausea vomiting. MD chief complaint: eye redness Onset (ago): day(s) (2) Related Data Allergies Allergy/AdvReac Type Severity Reaction Status Date / Time naproxen Allergy Severe Swelling Verified 07/05/23 09:40 NSAIDS (Non-Steroidal Allergy Severe Swelling Verified 07/05/23 09:40 Anti-Inflamma Review of Systems Constitutional: Constitutional: Reports no additional constitutional complaints Eyes: Eyes: Reports as per HPI Comments: Eye redness, irritation, drainage and crusting ENT: Reports as per HPI and Reports sore throat Comments: nasal drainage Cardiovascular: Cardiovascular: Reports no additional cardiovascular complaints Respiratory: Respiratory: Reports no additional respiratory complaints Neurologic: Reports system reviewed and no additional complaints, except as documented [facility] Past Medical History Medical History Anemia, unspecified Anxiety and depression Bartholin cyst delivery delivered Diverticulosis Seasonal allergic rhinitis Surgical History Surgical History H/O section X3 Family History Family History Mother Patient's mother is in good health Father Patient's father is in good health Sibling Patient's sister is in good health Patient's brother is in good health Other Asthma Social History Social History Smoking status: Never smoker Second hand tobacco smoke exposure: No Alcohol intake: never Substance use: never Substance use type: does not use Living arrangements: with family Occupation/Education: other Additional occupation/education comments: Disable Gender identity (if verbalized by the patient): Female Sexual Orientation (if Verbalized by the Patient): Straight or Heterosexual Spiritual care concerns: No Comments At the time of my signature, I reviewed and agree with the nursing past medical, surgical, social, and family history. There is no relevant family history pertinent to the patient complaint. Exam Const: General: cooperative, healthy appearing, no acute distress and well nourished Nutritional Appearance: well nourished Orientation/consciousness: patient oriented x3 Limitations: no limitations HENMT: Head: normal to inspection and normocephalic Ears: external ears normal, TM's normal bilaterally, mastoids normal and Abnormal EAC present Face/Nose/Sinus: Nasal discharge present Face and sinus: normal facial exam, sinuses tender and no sinus tenderness Mouth: Yes Normal oral and palatal mucosa present, Yes oropharynx normal and Yes moist mucous membranes Throat: posterior oropharynx normal, tonsils normal, uvula midline and no uvular edema Eyes: Conjunctivae: conjunctival abnormality bilateral ( erythematous with yellow drainage) Sclera: sclerae normal Pupils: Equal, round and reactive pupils present Direct Ophthalmoscopy: no photophobia Resp: Effort & Inspection: normal respiratory effort, able to speak in complete sentences, no audible wheezes, no cough, no respiratory distress and no retractions Auscultation: clear to auscultation bilaterally, no crackles, no rales, no rhonchi and no wheezes Cardio: Rate: regular rate Rhythm: regular rhythm Skin: General skin exam: normal color and no rashe
== END 2023-07-05 09:59 | disposition home or self-care (01) ==
PROVIDERS: Emergency Provider Registered Nurse; PCP Nurse Practitioner Family
DX: H10.33 Unspecified acute conjunctivitis, bilateral (principal)
CPT/HCPCS: 87081; 87880; 99213; G0463

== ENCOUNTER 2023-07-10 19:21 | Emergency (ER) | payer MEDICARE, MEDICAID, SELFPAY ==
[2023-07-10 19:26] VITALS: BP 123/76; PULSE 77; RESP 16; TEMP 36.8; O2SAT 99
--- NOTE | 2023-07-10 19:53 | ED.GENADULT ---
HPI - General Adult General Chief complaint: Upper Respiratory Infection Stated complaint: Sore throat Time Seen by Provider: 07/10/23 19:54 Source: patient, RN notes reviewed and old records reviewed Mode of arrival: ambulatory Limitations: no limitations History of Present Illness HPI narrative: 43-year-old female presents to the [facility] with complaints of a sore throat intermittently for 1 week. Had been seen and evaluated on the 4th, diagnosed with conjunctivitis, had a negative strep screen and culture at that time. Onset (ago): week(s) Related Data Home Medications Medication Instructions Recorded Confirmed ofloxacin 0.3 % eye drops drp 07/10/23 Allergies Allergy/AdvReac Type Severity Reaction Status Date / Time naproxen Allergy Severe Swelling Verified 07/10/23 19:37 NSAIDS (Non-Steroidal Allergy Severe Swelling Verified 07/10/23 19:37 Anti-Inflamma Review of Systems Review of Systems: All systems reviewed & are unremarkable except as noted in HPI and below Constitutional: Constitutional: Reports no additional constitutional complaints Eyes: Eyes: Reports no additional eye complaints ENT: Reports as per HPI and Reports sore throat Cardiovascular: Cardiovascular: Reports no additional cardiovascular complaints, Denies chest pain and Denies dyspnea Respiratory: Respiratory: Reports no additional respiratory complaints, Denies chest congestion, Denies cough and Denies dyspnea Gastrointestinal: Gastrointestinal: Reports no additional gastrointestinal complaints, Denies abdominal pain, Denies nausea and Denies vomiting Musculoskeletal: Musculoskeletal: Reports no additional musculoskeletal complaints Integumentary/Breasts: Skin/Breast: Reports system reviewed and no additional complaints, except as docu Neurologic: Reports system reviewed and no additional complaints, except as documented Psychiatric: Psychiatric: Reports no additional psychiatric complaints Allergic/Immunologic: Allergic/Immunologic: Reports no additional allergic/immunologic complaints [facility] Past Medical History Medical History Anemia, unspecified Anxiety and depression Bartholin cyst delivery delivered Diverticulosis Seasonal allergic rhinitis Surgical History Surgical History H/O section X3 Family History Family History Mother Patient's mother is in good health Father Patient's father is in good health Sibling Patient's sister is in good health Patient's brother is in good health Other Asthma Social History Social History Smoking status: Never smoker Second hand tobacco smoke exposure: No Alcohol intake: never Substance use: never Substance use type: does not use Living arrangements: with family Occupation/Education: other Additional occupation/education comments: Disable Gender identity (if verbalized by the patient): Female Sexual Orientation (if Verbalized by the Patient): Straight or Heterosexual Spiritual care concerns: No Comments At the time of my signature, I reviewed and agree with the nursing past medical, surgical, social, and family history. There is no relevant family history pertinent to the patient complaint. Exam Const: General: cooperative, healthy appearing, comfortable, no acute distress, well developed, alert and well nourished Nutritional Appearance: well nourished Orientation/consciousness: patient oriented x3 Limitations: no limitations HENMT: Head: normal to inspection Ears: hearing grossly normal bilaterally, external ears normal, TM's normal bilaterally, EAC's normal, mastoids normal and no periauricular adenopathy Face/Nose/Sinus: Normal external nose present, Normal nares present, Normal nasal mucous membranes an
== END 2023-07-10 20:05 | disposition home or self-care (01) ==
PROVIDERS: Emergency Provider Nurse Practitioner; PCP Nurse Practitioner Family
DX: J02.9 Acute pharyngitis, unspecified (principal); R09.82 Postnasal drip
CPT/HCPCS: 87081; 87880; 99213; G0463

== ENCOUNTER 2024-04-09 08:59 | Emergency (ER) | payer MEDICARE, SELFPAY ==
[2024-04-09 10:08] LABS: Add Urine Microscopic? YES; Appearance Urine Clear (Clear); Bacteria Urine None Seen /hpf; Bilirubin Urine Negative (Negative); Blood Urine Non-Hemolyzed Trace (Negative); Color Urine Yellow (Yellow); Glucose Urine UA Negative (Negative); Ketones Urine 2+ mg/dL (Negative); Leukocyte Esterase Ur Trace LEU/UL (Negative); Nitrate Urine Negative (Negative); Non Pathogenic Casts 0-2; Protein Urine Trace mg/dL (Negative); Specific Grav Ur 1.027 (1.001-1.035); Squamous Epithelial Cell Urine Moderate /hpf (Few); WBC Urine 0-5 /hpf (0-3); pH Urine 6.5 (5.0-9.0)
[2024-04-09 10:17] LABS: Basophils Percent Auto 0.2 % (0.2-1.2); Eosinophils Percent Auto 0.2 % (0-4.4); Hemoglobin 12.4 g/dL (12.0-15.0); Immature Granulocyte Absolute 0.01 K/mm3 (0.00-0.031); Immature Granulocyte Percent A 0.2 % (0-0.5); Lymphocytes Absolute Auto 1.51 K/mm3 (0.9-3.2); Lymphocytes Percent Auto 35.4 % (18.3-44.2); Mean Corpuscular HGB Conc 35.4 g/dl (32-36); Mean Corpuscular Hemoglobin 31.4 pg (26-34); Mean Corpuscular Volume 88.6 fl (80-100); Mean Platelet Volume 11.3 fl (7.4-10.4); Monocytes Absolute Auto 0.3 K/mm3 (0.1-0.6); Neutrophils Absolute Auto 2.4 K/mm3 (1.3-6.7); Platelet Count Result 245 k/mm3 (150-375); Red Blood Count 3.95 M/mm3 (4.2-5.4); Red Cell Distribution Width 13.2 % (11.5-14.5); White Blood Count 4.3 K/mm3 (4.5-10.0)
[2024-04-09 10:35] LABS: Alanine Aminotransferase 10 U/L (6-35); Albumin Level 4.2 g/dL (3.5-5.1); Alkaline Phosphatase 67 U/L (38-126); Anion Gap 8 mmol/L (4-12); Aspartate Amino Transferase 23 U/L (14-36); Bilirubin,Total 0.7 mg/dL (0.2-1.3); Blood Urea Nitrogen 11 mg/dL (7-17); Calcium 9.5 mg/dL (8.4-10.2); Carbon Dioxide 28 mmol/L (22-30); Chloride 103 mmol/L (98-107); Estimated CRCL calculation 65 ml/min; Estimated Glomerular Filt Rate > 60; Glucose 90 mg/dL (65-110); Lipase 71 U/L (23-300); Potassium 3.8 mmol/L (3.4-5.0); Sodium 139 mmol/L (137-145)
--- NOTE | 2024-04-09 11:01 | ED.GENADULT ---
HPI - General Adult General Chief complaint: Abdominal Pain Stated complaint: abd pain Time Seen by Provider: 04/09/24 09:16 History of Present Illness HPI narrative: Patient is a 43-year-old female who presents ER with her lower abdominal pain. Has history of diverticulitis. Gets this pain intermittently. There is away with antibiotics. Reports she has been a little dehydrated which may have provoked this. No fevers or chills or sweats. No diarrhea. No blood in her stool. She has not been seen by GI her general surgery. She had a CT scan in 2020 that showed diverticulitis and she has been able to have antibiotic treatment since then without additional hospital visits. Related Data Home Medications Medication Instructions Recorded Confirmed ofloxacin 0.3 % eye drops drp 07/10/23 01/28/24 Allergies Allergy/AdvReac Type Severity Reaction Status Date / Time naproxen Allergy Severe Swelling Verified 04/09/24 09:02 NSAIDS (Non-Steroidal Allergy Severe Swelling Verified 04/09/24 09:02 Anti-Inflamma Review of Systems Review of Systems: All systems reviewed & are unremarkable except as noted in HPI and below Constitutional: Constitutional: Reports no additional constitutional complaints Cardiovascular: Cardiovascular: Reports no additional cardiovascular complaints Respiratory: Respiratory: Reports no additional respiratory complaints Gastrointestinal: Gastrointestinal: Reports abdominal pain, Denies diarrhea, Denies nausea and Denies vomiting Musculoskeletal: Musculoskeletal: Reports no additional musculoskeletal complaints PMFSH Past Medical History Medical History Anemia, unspecified Anxiety and depression Bartholin cyst delivery delivered Diverticulosis Seasonal allergic rhinitis Surgical History Surgical History H/O section X3 Family History Family History Mother Patient's mother is in good health Father Patient's father is in good health Sibling Patient's sister is in good health Patient's brother is in good health Other Asthma Social History Social History Smoking status: Never smoker Second hand tobacco smoke exposure: No Alcohol intake: never Substance use: never Substance use type: does not use Living arrangements: with family Occupation/Education: other Additional occupation/education comments: Disable Gender identity (if verbalized by the patient): Female Sexual Orientation (if Verbalized by the Patient): Straight or Heterosexual Spiritual care concerns: No Exam Narrative: GENERAL: Well-appearing, well-nourished, and in no acute distress. HEAD: Normocephalic, atraumatic. ENT: Mucous membranes moist. CHEST: Clear to auscultation. No respiratory distress. HEART: Regular rate and rhythm. Normal peripheral pulses. ABDOMEN: Soft, nontender, nondistended. EXTREMITIES: Normal range of motion. No edema. SKIN: Warm, dry, no rash. NEURO: Alert and oriented x3. PSYCH: Normal mood and affect. Course Course Emergency Course: Patient resting comfortably. Discussed lab results which is normal. Discharged with oral antibiotics. Recommend follow-up with GI. Medical Decision Making Lab Data 04/09/24 10:06 04/09/24 10:06 Labs: Lab Results 04/09/24 04/09/24 Range/Units 09:54 10:06 WBC 4.3 L (4.5-10.0) K/mm3 RBC 3.95 L (4.2-5.4) M/mm3 Hgb 12.4 (12.0-15.0) g/dL Hct 35.0 L (37.0-47.0) % MCV 88.6 (80-100) fl MCH 31.4 (26-34) pg MCHC 35.4 (32-36) g/dl RDW 13.2 (11.5-14.5) % Plt Count 245 (150-375) k/mm3 MPV 11.3 H (7.4-10.4) fl Immature Gran % (Auto) 0.2 (0-0.5) % Neut % (Auto) 56.0 (45.5-73.1) % Lymph % (Auto) 35.4 (18.3-44
[2024-04-09 11:16] VITALS: BP 120/82; PULSE 64; RESP 18; TEMP 36.6; O2SAT 100
== END 2024-04-09 11:18 | disposition home or self-care (01) ==
PROVIDERS: Emergency Provider Emergency Medicine; PCP Nurse Practitioner Family
DX: K57.92 Diverticulitis of intestine, part unspecified, without perforation or abscess without bleeding (principal); F41.8 Other specified anxiety disorders
CPT/HCPCS: 36415; 80053; 81001; 83690; 85025; 99283

== ENCOUNTER 2024-05-22 13:57 | Outpatient (CLI) | payer MEDICARE, SELFPAY ==
--- NOTE | ~2024-05-22 | MM_ITS ---
EXAMINATION: MM screening [facility] HISTORY: Screening TECHNIQUE: Craniocaudal and mediolateral oblique 3-D tomosynthesis images were obtained and synthetic 2-D images were generated. CAD analysis was submitted and interpreted. COMPARISON: Comparison to multiple prior studies sequentially, with oldest reviewed study dated 08/26. BREAST PARENCHYMAL COMPOSITION: Dense: The breasts are extremely dense, which lowers the sensitivity of mammography. FINDINGS: There is no evidence of suspicious mass, calcification, or architectural distortion to sugg est malignancy in either breast. There has been no suspicious interval change. IMPRESSION: 1. No mammographic evidence of malignancy. 2. Recommend routine screening mammography in one year. BI-RADS Category 1: Negative Reviewed, dictated and finalized at location B.
== END 2024-05-22 13:58 | disposition home or self-care (01) ==
LOC: MICIMG 13:58
PROVIDERS: PCP Obstetrics & Gynecology Gynecology; Visit Provider Nurse Practitioner Family
DX: Z12.31 Encounter for screening mammogram for malignant neoplasm of breast (principal)
CPT/HCPCS: 77063; 77067

== ENCOUNTER 2024-07-07 09:04 | Emergency (ER) | payer MEDICARE, MEDICAID, SELFPAY ==
[2024-07-07 09:15] VITALS: BP 123/79; PULSE 73; RESP 16; TEMP 36.3; O2SAT 100
--- NOTE | 2024-07-07 09:17 | ED.SKABFB ---
HPI - Skin/Abscess/Foreign Bdy General Chief complaint: Urogenital-Female Stated complaint: Rash/Vaginal Problems Time Seen by Provider: 07/07/24 09:17 Source: patient, RN notes reviewed and old records reviewed Mode of arrival: ambulatory Limitations: no limitations History of Present Illness HPI narrative: Patient presents with complaints of a rash to the back of her neck for 4 days. She reports the rash is itchy, it appeared after she took down a weave. She is unsure if chemical she used may have caused the itchiness, it did appear after this. She has not been putting anything on the affected area. Patient is also complaining of burning with urination and vaginal itching. She reports symptoms began during her menstrual period, and have continued. Symptoms have been present for about 4 days. Denies concern for STI. Denies vaginal discharge. She denies any fever, chills, sweats. She denies any injury or trauma. She voices no other concerns or complaints at this time. She has not been taking anything for her symptoms Related Data Allergies Allergy/AdvReac Type Severity Reaction Status Date / Time naproxen Allergy Severe Swelling Verified 07/03/24 10:26 NSAIDS (Non-Steroidal Allergy Severe Swelling Verified 07/03/24 10:26 Anti-Inflamma Review of Systems Review of Systems: All systems reviewed & are unremarkable except as noted in HPI and below Constitutional: Constitutional: Reports no additional constitutional complaints ENT: Reports system reviewed and no additional complaints, except as documented Cardiovascular: Cardiovascular: Reports no additional cardiovascular complaints Respiratory: Respiratory: Reports no additional respiratory complaints Gastrointestinal: Gastrointestinal: Reports no additional gastrointestinal complaints Genitourinary: Genitourinary: Reports genital pruritis and Reports dysuria Integumentary/Breasts: Skin/Breast: Reports as per HPI and Reports rash PMFSH Past Medical History Medical History Anemia, unspecified Anxiety and depression Bartholin cyst delivery delivered Diverticulosis Seasonal allergic rhinitis Surgical History Surgical History H/O section X3 Family History Family History Mother Patient's mother is in good health Father Patient's father is in good health Sibling Patient's sister is in good health Patient's brother is in good health Other Asthma Social History Social History Smoking status: Never smoker Second hand tobacco smoke exposure: No Alcohol intake: never Substance use: never Substance use type: does not use Living arrangements: with family Occupation/Education: other Additional occupation/education comments: Disable Gender identity (if verbalized by the patient): Female Sexual Orientation (if Verbalized by the Patient): Straight or Heterosexual Spiritual care concerns: No Comments At the time of my signature, I reviewed and agree with the nursing past medical, surgical, social, and family history. There is no relevant family history pertinent to the patient complaint. Exam Const: General: cooperative, no acute distress, alert and awake Orientation/consciousness: oriented to person, oriented to place and oriented to time HENMT: Head: normal to inspection Mouth: Yes moist mucous membranes Resp: Effort & Inspection: normal respiratory effort and able to speak in complete sentences Auscultation: clear to auscultation bilaterally, no crackles, no rales, no rhonchi and no wheezes Cardio: Palpation: normal PMI Rate: regular rate Rhythm: regular rhythm Heart sounds: S1 normal heart sound present and S2 normal heart sound present Skin: Rashes: rashes noted (Fine lacy rash noted to the back of the neck) Neuro: General: oriented to person, oriented to place and oriented to time Cranial nerves: Yes CN's II-XII intact bilaterally Psych: Appearance: grossly normal Thought process: Normal thought process present Insight: Good insight present (Psych) Judgement: Good judgement present (Psych) Course Course Level of Care: Express Care Visit Vital Signs Vital signs: Vital Signs Temperature 97.4 F L 07/07/24 09:15 Pulse Rate 73 07/07/24 09:15 Respiratory Rate 16 07/07/24 09:15 Blood Pressure 123/79 07/07/24 09:15 Pulse Oximetry 100 07/07/24 09:15 Oxygen Delivery Room Air 07/07/24 09:15 Temperature 97.4 F L 07/07/24 09:15 Pulse Rate 73 07/07/24 09:15 Respiratory Rate 16 07/07/24 09:15 Blood Pressure 123/79 07/07/24 09:15 Pulse Oximetry 100 12/09/24 09:15 Oxygen Delivery Room Air 07/07/24 09:15 Reviewed MDM - Skin/Abscess/Foreign Bdy MDM Narrative Medical decision making narrative: Rash to the back of the neck consistent with dermatitis. Treat with topical. Vaginal complaints consistent with yeast. UA negative. Discharge instructions reviewed with patient, as well as provided in writing per nursing staff. The instructions also include specific and strict return/GO TO THE ER as well as f/u information. All questions have been answered, and the patient deny any further questions with discharge and discharge plan. Some parts of this dictation were generated by voice recognition software and may contain typographical and/or grammatical inaccuracies. Differential Diagnosis Differential diagnosis: Likely other (Dermatitis, yeast infection, allergic reaction, BV, UTI) Medical Records Attestation: I reviewed the patient's medical records. Lab Data Attestation: I reviewed the patient's lab results. Discharge Plan Discharge Clinical Impression: Dermatitis, Vaginal yeast infection Patient Disposition: Home, Self-Care Condition: Stable Instructions: Antibiotic Form, Yeast Infection (ED), Dermatitis (ED) Additional Instructions: Take medications as prescribed. Follow with primary care provider. Emergency department for new or worse symptoms Patient Language: Icelandic Prescriptions: New mometasone 0.1 % cream 1 applic topical DAILY PRN (Reason: itching) Qty: 45 0RF fluconazole [Diflucan] 200 mg tablet 200 mg PO DAILY Qty: 2 0RF Rx Instructions: Take 1 tablet by mouth now, may repeat dose in 72 hours if symptoms do not subside Follow-up/Referrals: Gillian Sanchez MD [Primary Care Provider] - 2 Weeks Time of Disposition: 09:42
[2024-07-07 09:38] LABS: EDUAAPPEAR Clear; EDUABILI Negative (Negative); EDUABLOOD 1+ (Negative); EDUACOLOR1 Yellow; EDUAGLUCOSE Negative (Negative); EDUAKETONE Negative (Negative); EDUALEUKO Negative (Negative); EDUANITRATE Negative (Negative); EDUAPH 5.5; EDUAPROTEIN Trace (Negative); EDUAUROBILI 0.2
== END 2024-07-07 09:49 | disposition home or self-care (01) ==
PROVIDERS: Emergency Provider Nurse Practitioner Family; PCP Obstetrics & Gynecology Gynecology
DX: L30.9 Dermatitis, unspecified (principal); B37.31 Acute candidiasis of vulva and vagina
CPT/HCPCS: 81003; 99213; G0463